=== PATIENT | male | born 1970 | race Caucasian/White ===

== ENCOUNTER 2016-03-20 08:16 | Emergency (ER) | payer SELFPAY ==
--- NOTE | 2016-03-20 08:27 | Emergency Department Record ---
History of Present Illness - General Chief complaint: Dental Stated complaint: DENTAL PAIN/INFECTION Time Seen by Provider: 03/20/16 08:26 Source: Patient Mode of Arrival: Ambulatory Limitations: No limitations - History of Present Illness Initial comments: The patient is here due to a one week hx of dental pain. It initially was on the L side and involved the L upper teeth. He did have some swelling to the L side of the face and did go to [facility] [place] [facility] 2 days ago and was placed on Keflex. Now the swelling has greatly improved but he is having pain now on the R upper dental molar area. He also has a swollen lymph node over the R side of the neck. There is no trouble swallowing, fever, chills, or PITTMAN. MD complaint: Tooth pain Onset/Timin -: Week(s) Location: Tooth # Severity: Severe Severity scale (1-10): 9 Quality: Aching Consistency: Constant Improves with: None Worsens with: None Associated Symptoms: Toothache - Related Data Previous Rx's Medication Instructions Recorded Clindamycin HCl [Cleocin HCl] 300 mg PO QID #28 capsule 03/20/16 Naproxen [Naprosyn] 500 mg PO BID #14 tablet. 03/20/16 Allergies Allergy/AdvReac Type Severity Reaction Status Date / Time Penicillins [PENICILLINS] Allergy Severe HIVES Verified 03/20/16 08:24 Travel Screening - Travel/Exposure Within Last 30 Days Have you traveled within the last 30 days?: No Review of Systems Constitutional: Denies: Chills, Fever Eyes: Denies: Eye discharge ENT: Reports: Dental pain. Denies: Congestion Respiratory: Denies: Cough Past Medical History - SOCIAL HISTORY Smoking Status: Never smoker Alcohol Use: None Drug Use: None - RESPIRATORY Hx Respiratory Disorders: No - CARDIOVASCULAR Hx Cardio Disorders: No - NEURO Hx Neuro Disorders: No - GI Hx GI Disorders: Yes Comment:: hernia - Hx Genitourinary Disorders: No - ENDOCRINE Hx Endocrine Disorders: No - MUSCULOSKELETAL Hx Musculoskeletal Disorders: No - PSYCH Hx Psych Problems: No - HEMATOLOGY/ONCOLOGY Hx Hematology/Oncology Disorders: No Family Medical History Any Significant Family History?: No Hx Diabetes: Mother Physical Exam - General General Appearance: Alert, Oriented x3, Cooperative, No acute distress - Head Head exam: Atraumatic, Normocephalic, Normal inspection - Eye Eye exam: Normal appearance, PERRL - ENT ENT exam: TM's normal bilaterally (Partial cerumen impaction.). negative: Normal exam Teeth exam: Dental caries (There is diffuse poor dentition with no obvious abscess present at the gingiva.), Dental tenderness # (There is diffuse tenderness to the R and L upper molar area.). negative: Normal inspection Throat exam: Normal inspection. negative: Tonsillar erythema, Tonsillomegaly - Neck Neck exam: Full ROM, Lymphadenopathy (There is a tender swollen R submandibular lymph node.). negative: Normal inspection - Respiratory Respiratory exam: Normal lung sounds bilaterally. negative: Respiratory distress Course Vital Signs 03/20/16 08:20 Temperature 98.0 F Pulse Rate 76 Respiratory 20 Rate Blood Pressure 135/90 Pulse Ox 99 - Reevaluation(s) Reevaluation #1: I did explain to the patient we will recommend stopping the Keflex and starting Clindamycin and Naprosyn. He is to F/U in the [facility]. 03/20/16 08:35 Disposition Disposition: Discharge Clinical Impression: Pain, dental Disposition: Home, Self-Care Condition: (1) Good Instructions: Dental Abscess (ED) Additional Instructions: Please stop the Keflex and start the Clindamycin and Naprosyn. Please see the dentist in the [facility]. Prescriptions: Clindamycin HCl [Cleocin HCl] 300 mg PO QID #28 capsule Naproxen [Naprosyn] 500 mg PO BID #14 tablet.dr Forms: Patient Portal Access Time of Disposition: 08:37
== END 2016-03-20 08:45 | disposition home or self-care (01) ==
LOC: ER 08:16
DX: K02.9 Dental caries, unspecified (principal); H61.20 Impacted cerumen, unspecified ear; R59.0 Localized enlarged lymph nodes
CPT/HCPCS: 99282

== ENCOUNTER 2016-12-23 20:13 | Emergency (ER) | payer SELFPAY ==
--- NOTE | 2016-12-23 20:24 | Emergency Department Record ---
History of Present Illness - General Chief complaint: ENT Stated complaint: DENTAL ABSCESS Time Seen by Provider: 12/23/16 20:21 Source: Patient Mode of Arrival: Ambulatory Limitations: No limitations - History of Present Illness Initial comments: 46 yo male presents to ED with a CC of right upper dental pain and soft-tissue swelling of the face following a broken tooth yesterday. Patient denies fevers , chills, or drainage from his tooth/gingiva, but reports that he wanted to be seen to start antibiotics before his dental appointment tomorrow. MD complaint: Tooth pain Onset/Timin -: Days(s) Severity: Moderate Quality: Aching Consistency: Constant Improves with: None Worsens with: None Context- Dental: Other (broken tooth) - Related Data Previous Rx's Medication Instructions Recorded Clindamycin HCl [Cleocin HCl] 300 mg PO QID #28 capsule 03/20/16 Naproxen [Naprosyn] 500 mg PO BID #14 tablet. 03/20/16 Penicillin V Potassium 500 mg PO QID #27 tablet 12/23/16 Allergies Allergy/AdvReac Type Severity Reaction Status Date / Time Penicillins [PENICILLINS] Allergy Severe HIVES Verified 03/20/16 08:24 Review of Systems Constitutional: Denies: Chills, Fever, Malaise, Night sweats Eyes: Denies: Eye discharge, Eye pain ENT: Reports: Dental pain. Denies: Congestion, Ear pain Respiratory: Denies: Cough, Dyspnea Cardiovascular: Denies: Chest pain, Dyspnea on exertion Endocrine: Denies: Fatigue, Heat or cold intolerance Gastrointestinal: Denies: Abdominal pain, Nausea, Vomiting Genitourinary: Denies: Incontinence, Retention Musculoskeletal: Denies: Arthralgia, Back pain, Gout, Joint swelling Skin: Denies: Bruising, Change in color Neurological: Denies: Abnormal gait, Confusion, Headache, Seizure Psychiatric: Denies: Anxiety Hematological/Lymphatic: Denies: Anemia, Blood Clots Past Medical History - SOCIAL HISTORY Smoking Status: Never smoker Drug Use: None - RESPIRATORY Hx Respiratory Disorders: No - CARDIOVASCULAR Hx Cardio Disorders: No - NEURO Hx Neuro Disorders: No - GI Hx GI Disorders: Yes Comment:: hernia - Hx Genitourinary Disorders: No - ENDOCRINE Hx Endocrine Disorders: No - MUSCULOSKELETAL Hx Musculoskeletal Disorders: No - PSYCH Hx Psych Problems: No - HEMATOLOGY/ONCOLOGY Hx Hematology/Oncology Disorders: No Family Medical History Hx Diabetes: Mother Physical Exam - General General Appearance: Alert, Oriented x3, Cooperative, Mild distress Limitations: No limitations - Head Head exam: Atraumatic, Normal inspection Head exam detail: Other (Soft-tissue swelling to the right maxillary region, no induration or underlying abscess is present.). negative: Abrasion, Contusion, Summers's sign, General tenderness, Hematoma, Laceration - Eye Eye exam: Normal appearance. negative: Conjunctival injection, Periorbital swelling, Periorbital tenderness, Scleral icterus - ENT Ear exam: negative: Auricular hematoma, Auricular trauma Nasal Exam: negative: Active bleeding, Discharge, Dried blood, Foreign body Mouth exam: negative: Drooling, Laceration, Muffled voice, Tongue elevation Teeth exam: Dental caries, Dental tenderness #, Fractured tooth # Throat exam: negative: Tonsillar erythema, Tonsillomegaly, R peritonsillar mass , L peritonsillar mass Image of Mouth/Teeth: 1 - Dental fracture, no gingival swelling present - Neck Neck exam: Normal inspection. negative: Meningismus, Tenderness - Respiratory Respiratory exam: Normal lung sounds bilaterally. negative: Rales, Respiratory distress, Rhonchi, Stridor - Cardiovascular Cardiovascular Exam: Regular rate, Normal rhythm, Normal heart sounds - GI/Abdominal GI/Abdominal exam: Soft. negative: Rebound, Rigid, Tenderness - Rectal Rectal exam: Deferred - exam: Deferred - Extremities Extremities exam: Normal inspection. negative: Calf tenderness, Pedal edema, Tenderness - Back Back exam: Denies: CVA tenderness (R), CVA tenderness (L) - Neurological Neurological exam: Alert, Normal gait, Oriented X3 - Psychiatric Psychiatric exam: Normal affect, Normal mood - Skin Skin exam: Normal color. negative: Abrasion Type of lesion: negative: abrasion Course - Reevaluation(s) Reevaluation #1: 12/23/16 20:33 Decadron and Penicillin VK initiated in the ED, patient appears stable for discharge to follow-up with his dentist tomorrow. Disposition Disposition: Discharge Clinical Impression: Dental abscess Disposition: Home, Self-Care Condition: (2) Stable Instructions: Dental Abscess (ED) Additional Instructions: Return to ED if your symptoms worsen or if you have any concerns. Penicillin VK as directed. Follow-up with your dentist tomorrow as scheduled. Prescriptions: Penicillin V Potassium 500 mg PO QID #27 tablet Forms: Patient Portal Access Time of Disposition: 20:24 Quality - Quality Measures Quality Measures: N/A - Blood Pressure Screening Does Patient Have Any of the Following: No Blood Pressure Classification: Pre-Hypertensive BP Reading Systolic Measurement: 136 Diastolic Measurement: 85 Screening for High Blood Pressure: < Pre-Hypertensive BP, F/U Documented > [ [id number]] Pre-Hypertensive Follow-up Interventions: Referral to alternative/primary care provider.
[2016-12-23] MEDS: PENICILLIN V POTASSIUM 250 MG TAB PO ONE (20:32)
[2016-12-23] MEDS: DEXAMETHASONE SOD PHOSPHATE 10MG/ML VIAL PO ONE (20:32)
== END 2016-12-23 20:41 | disposition home or self-care (01) ==
LOC: ER 20:13
DX: K04.7 Periapical abscess without sinus (principal)
CPT/HCPCS: 99282